=== PATIENT | female | born 1965 | race Caucasian/White ===

== ENCOUNTER 2018-03-20 12:02 | Emergency (ER) | payer MEDICAID ==
[~2018-03-20] VITALS: Ht 162.6 cm; Wt 103.4 kg
[~2018-03-20 12:02] MED LIST: ASPIR LOW81 MG PO; ECO81 PO; GLU5 PO; METFORMIN HCL1000 MG PO; METFORMIN HCL500 MG PO; METFORMIN HYD1000 M1 PO; METOPROLOL TART25 M1 PO; NEU100 PO; ZES20 PO; ZOC10 PO; ZOC20 PO
[2018-03-20 12:06] VITALS: Ht 162.6 cm; Wt 103.4 kg
[2018-03-20 14:17] LABS: BASOPHIL % 0.6 % (0-2); PLATELET COUNT 250 x10^3mcL (130-400); RED CELL DISTRIBUTION WIDTH 13.2 % (11.5-14.5)
[2018-03-20 14:29] LABS: CALCIUM 8.5 mg/dL (8.5-10.1); CARBON DIOXIDE 26.2 mmol/L (21-32); CHLORIDE SERUM 103 mmol/L (98-107); CREATININE SERUM 0.7 mg/dL (0.6-1.0); GFR1 > 60 mL/min; GLUCOSE SERUM 333 mg/dL (74-106); POTASSIUM SERUM 3.5 mmol/L (3.5-5.1); SODIUM SERUM 138 mmol/L (136-145)
[2018-03-20 14:34] LABS: ALBUMIN 3.3 g/dL (3.4-5.0); ALKALINE PHOSPHATASE 146 U/L (46-116); ALT/SGPT 44 U/L (14-59); AST/SGOT 27 U/L (15-37); BILIRUBIN TOTAL 0.5 mg/dL (0.20-1.00); TOTAL PROTEIN, SERUM 7.2 g/dL (6.4-8.2)
[2018-03-20 15:27] VITALS: BP 191/99
== END 2018-03-20 15:27 | disposition home or self-care (01) ==
LOC: ED 12:02
PROVIDERS: Emergency Medicine
DX: S90.822A Blister (nonthermal), left foot, initial encounter (principal); S90.821A Blister (nonthermal), right foot, initial encounter; I10 Essential (primary) hypertension; E11.9 Type 2 diabetes mellitus without complications; Z88.0 Allergy status to penicillin; X58.XXXA Exposure to other specified factors, initial encounter; Y93.89 Activity, other specified; Y92.89 Other specified places as the place of occurrence of the external cause; Y99.8 Other external cause status
CPT/HCPCS: 82962; J1885; J7030; Q0092

== ENCOUNTER 2018-08-01 07:51 | Emergency (ER) | payer MEDICAID ==
[~2018-08-01] VITALS: Ht 160 cm; Wt 107.0 kg
[2018-08-01 08:10] VITALS: Ht 160 cm; Wt 107.0 kg
[2018-08-01 09:00] VITALS: BP 189/102
== END 2018-08-01 09:00 | disposition home or self-care (01) ==
LOC: ED 07:51
DX: G89.29 Other chronic pain (principal); E11.42 Type 2 diabetes mellitus with diabetic polyneuropathy; I10 Essential (primary) hypertension; Z88.0 Allergy status to penicillin

== ENCOUNTER 2019-04-02 00:22 | Emergency (ER) | payer MEDICAID ==
[~2019-04-02] VITALS: Ht 170.2 cm; Wt 97.1 kg
[2019-04-02 00:25] VITALS: Ht 170.2 cm; Wt 97.1 kg
[2019-04-02 02:15] VITALS: BP 162/98
== END 2019-04-02 02:15 | disposition home or self-care (01) ==
LOC: ED 00:22
DX: R05 Cough (principal); I10 Essential (primary) hypertension; E11.9 Type 2 diabetes mellitus without complications; Z88.0 Allergy status to penicillin